=== PATIENT | female | born 1970 ===

== ENCOUNTER → 2016-06-12 | Outpatient (CLI) | payer OTHER | END | disposition home or self-care (01) | LOC: C.PAPS 10:54 | PROVIDERS: ATTEND Obstetrics & Gynecology | DX: Z01.419 Encounter for gynecological examination (general) (routine) without abnormal findings (principal) ==

== ENCOUNTER 2023-05-04 17:04 | Observation (INO) ==
--- NOTE | 2023-05-04 17:15 | ED Triage Note ---
Date of Service May 04, 2023 Provider in Triage Author: Lucia Subramanian History of Present Illness This patient was briefly evaluated while in triage. An abbreviated physical exam was performed. This patient is a 52-year-old Female who presents to the ED for evaluation of hypertension, seen at PCP today and had labs done, reports head, mouth and face is numb. LKW 1630 stroke alert called in triage. Physical Exam CONSTITUTIONAL: in no acute pain or distress, resting comfortably SKIN: pink, warm, dry CARDIAC: regular rate and rhythm RESPIRATORY: in no respiratory distress, lungs clear to auscultation ABDOMEN: no TTP MSK: 5/5 strength RUE, RLE, 4/4 strength LUE, LLE NEURO: headache, facial numbness, tingling, headache, Left side weakness, alert and oriented x 3 Initial orders for labs and / or imaging were placed and patient was placed in the waiting area until a bed is available. Please see further documentation for the full ED course.
[2023-05-04] MEDS ORDERED: SODIUM CHLORIDE 0.9% 500 ML IV ONE (17:27)
[2023-05-04] MEDS ORDERED: ACETAMINOPHEN 1,000 MG/100 ML VIAL IV STA (17:27)
[2023-05-04] MEDS ORDERED: OPTIRAY 320 125ml IV ONE (17:38)
[2023-05-04 17:40] LABS: iSTAT Creatinine 0.7 mg/dl (0.6-1.3); iSTAT Ionized Calcium 1.29 mmol/l (1.12-1.32)
--- NOTE | 2023-05-04 17:41 | CT Scan Report ---
CT OF THE HEAD WITHOUT CONTRAST CLINICAL HISTORY: neuro deficit, acute stroke suspected COMPARISON STUDY: No previous studies for comparison. CT DOSE: 1283.78 mGy.cm TECHNIQUE: Helical axial images of the head were obtained without IV contrast. Automated exposure con trol was utilized for the study. A dose lowering technique was utilized adhering to the principles o f ALARA. FINDINGS: No acute intracranial hemorrhage, midline shift or mass effect is present. The ventricular system is unremarkable. The basal cisterns are patent. No extra-axial collections are present. There are no findings to suggest acute dural sinus thrombosis or acute territorial infarct. No significant calvarial abnormalities are present. Visualized portions of the sinuses and mastoid air cells are shraddha ar. IMPRESSION: No acute intracranial findings. ACT 112: Negative or not required by law. Electronically signed by: Ramos Dill M.D. 05/04/2023 5:40 PM
[2023-05-04 17:42] LABS: Basophils # (auto) 0.12 K/uL (0.00-0.20); Basophils % (auto) 1.1 %; Eosinophils # (auto) 0.37 K/uL (0.00-0.50); Eosinophils % (auto) 3.4 %; Hematocrit (blood only) 45.3 % (37.0-47.0); Immature Granulocytes # (auto) 0.05 K/uL (0.01-0.20); Immature Granulocytes % (auto) 0.5 %; Lymphocytes # (auto) 3.52 K/uL (1.20-3.40); Lymphocytes % (auto) 32.7 %; Mean Corpuscular Hemoglobin 33.3 pg (25.0-34.0); Mean Corpuscular Hgb Conc 35.3 g/dL (32.0-36.0); Mean Corpuscular Volume 94.4 fL (80.0-100.0); Mean Platelet Volume 8.7 fL (9.4-12.4); Monocytes # (auto) 0.99 K/uL (0.11-0.59); Monocytes % (auto) 9.2 %; Neutrophils # (auto) 5.73 K/uL (1.40-6.50); Neutrophils % (auto) 53.1 %; Platelet Count 310 K/uL (130-400); RDW Coefficient of Variation 13.4 % (11.5-14.5); RDW Standard Deviation 46.5 fL (36.4-46.3); White Blood Count 10.78 K/ul (4.8-10.8)
--- NOTE | 2023-05-04 17:47 | CT Scan Report ---
CT ANGIOGRAPHY OF THE NECK WITH CONTRAST CLINICAL HISTORY: neuro deficit, acute stroke suspected COMPARISON STUDY: No previous studies for comparison. Technique: CT angiography of the carotid and vertebral arteries was obtained using Optiray and 3D rec onstruction on an independent workstation. NASCET criteria was utilized. Automated exposure control was utilized for the study. A dose lowering technique was utilized adhering to the principles of ALA RA. Findings: Visualized portions of the lung apices are unremarkable. There is no cervical lymphadenopat hy. No cervical spine fracture is noted. 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 There is mild atherosclerotic plaque of the aortic arch. The bilateral common carotid, cervical i nternal carotid and vertebral arteries are patent. No stenosis or dissection is present. There is no aneurysm within the neck. IMPRESSION: No stenosis or dissection within the bilateral common carotid, cervical internal carotid or vertebral arteries. ACT 112: Negative or not required by law. Electronically signed by: Ramos Dill M.D. 05/04/2023 5:44 PM
--- NOTE | 2023-05-04 17:50 | CT Scan Report ---
CTA ANGIOGRAPHY OF THE HEAD CLINICAL HISTORY: neuro deficit, acute stroke suspected COMPARISON STUDY: No previous studies for comparison. TECHNIQUE: Helical axial images of the head were obtained following uneventful intravenous administr ation of 119 cc of Optiray. Sagittal and coronal reconstructions were viewed as well as maximal inten sity projections on an independent 3-D workstation. Automated exposure control was utilized for the study. A dose lowering technique was utilized adhering to the principles of ALARA. FINDINGS: No acute intracranial hemorrhage was identified on the unenhanced head CT which will be rep orted separately. The ventricular system is normal. Basal cisterns are patent. There are no extra-axi al collections. The bilateral M1, M2, A1 and A2 segments are patent. The posterior circulation is int act. There is no large vessel occlusion. There is no intracranial aneurysm. Major dural sinuses are p atent. IMPRESSION: No large vessel occlusion. No intracranial aneurysm. ACT 112: Negative or not required by law. Electronically signed by: Ramos Dill M.D. 05/04/2023 5:47 PM
[2023-05-04 17:57] LABS: Albumin Globulin Ratio 1.5 (0.9-2); Albumin Level 4.6 gm/dl (3.4-5.0); BUN Creatinine Ratio 17.2 (10-20); Bilirubin,Total 0.7 mg/dl (0.2-1.0); Creatinine Clr Calc Pharmacy 118.9 ml/min; Est GFR (African American) 118.9 ml/min; Est GFR (Non-African American) 102.6 ml/min; Magnesium 1.8 mg/dl (1.7-2.4); Total Protein 7.6 gm/dl (6.0-8.3)
[2023-05-04 18:02] LABS: Troponin I High Sensitivity 3.7 pg/ml (0-14)
[2023-05-04 18:07] LABS: Partial Thromboplastin Time 28 Seconds (21-31); Prothrombin Time 10.9 Seconds (9.0-12.0)
[2023-05-04 18:24] LABS: Lyme Ab IgG w/WB Rflx Negative (Negative); Lyme Ab IgM w/WB Rflx Negative (Negative)
[2023-05-04 18:57] LABS: Appearance Urine Clear (Clear); Bilirubin Urine Negative (Negative); Blood Urine Negative (Negative); Color Urine Yellow; Glucose Urine UA Negative (Negative); Ketones Urine Negative (Negative); Leukocyte Esterase Urine Negative (Negative); Nitrite Urine Negative (Negative); Protein Urine Negative (Negative); Specific Gravity Urine 1.036 (1.000-1.030); Urobilinogen Urine Negative (Negative)
[2023-05-04 18:57] LABS: Adenovirus PCR Not Detected (NotDetected); Bordetella parapertussis PCR Not Detected (NotDetected); Bordetella pertussis PCR Not Detected (NotDetected); Chlamydia pneumoniae PCR Not Detected (NotDetected); Coronavirus 229E PCR Not Detected (NotDetected); Coronavirus CoV-2 (COVID19)PCR Not Detected (NotDetected); Coronavirus HKU1 PCR Not Detected (NotDetected); Coronavirus NL63 PCR Not Detected (NotDetected); Coronavirus OC43PCR Not Detected (NotDetected); Human Metapneumovirus PCR Not Detected (NotDetected); Influenza A PCR Not Detected (NotDetected); Influenza B PCR Not Detected (NotDetected); Mycoplasma pneumoniae PCR Not Detected (NotDetected); Parainfluenza Virus 1 PCR Not Detected (NotDetected); Parainfluenza Virus 2 PCR Not Detected (NotDetected); Parainfluenza Virus 3 PCR Not Detected (NotDetected); Parainfluenza Virus 4 PCR Not Detected (NotDetected); Respiratory Syncytial VirusPCR Not Detected (NotDetected); Rhinovirus/Enterovirus PCR Not Detected (NotDetected)
--- NOTE | 2023-05-04 19:20 | Emergency Department Note ---
Impression & Plan Hypertensive urgency, Chest pain, Facial paresthesia, Paresthesia of upper extremity, Paresthesia of lower extremity ED Provider Note NAME: CHRIS BLACKWELL AGE: 52 SEX: F ARRIVES VIA: Walk-In INFORMANT: Patient ED PROVIDER(S): Jameel Carlin MD CHIEF COMPLAINT: Hypertension, headache, chest pain, paresthesias. PLAN: Disposition: Admit MEDICAL DECISION MAKING: The patient is a pleasant 52-year-old woman with a past medical history of hypertension, hypothyroidism who presents to the emergency department via walk- in accompanied by her friend for evaluation of ongoing elevated blood pressure, frontal headache for the past several days where she was seen by her primary care doctor and had outpatient testing ordered but was instructed to present to emergency department if she had any worsening of symptoms which she did today and upon presenting to the triage desk complained of acute onset substernal chest pain and development of tingling in her face bilaterally, neck bilaterally, arms and feet bilaterally. A stroke alert was activated from triage for worsening symptoms in the setting of her blood pressure. On my evaluation in the critical care bay the patient's blood pressure is elevated 170s/110s and vital signs are otherwise stable. She appears clinically dry. She reports subjective paresthesias of the face, extremities and feet bilaterally but has no objective motor or sensory deficits. EKG without overt acute ischemia. CXR negative for acute cardiopulmonary process per my personal preliminary review/interpretation. WBC, H/H and platelets within normal limits. Chemistry without metabolic acidosis. LFTs are mildly elevated with AST and ALT 92 and 110, respectively and are nonspecific. Bilirubin is normal. High-sensitivity troponin 3.7, within normal limits. UA without convincing evidence of infection. Respiratory viral panel/[employer] was negative. Lyme screen was negative. CT of the head and CTA of the head and neck were performed were negative for ICH, ischemia or severe narrowing or occlusion of large vessels. The patient was treated with IV fluid hydration IV APAP and blood pressure did show some modest improvement to the 150s/90s and patient did feel improvement in her headache as well. However, given patient's hypertensive urgency with associated symptoms she does agree with plan for admission for further management and evaluation. Case was discussed with Dr. Armenta, [facility] hospitalist, who will evaluate the patient for admission. Triage Nursing notes reviewed and agree them. Prior/external medical records reviewed Vital Signs: reviewed Differential diagnosis: Infection, dehydration, metabolic abnormality, hypo/hyperglycemia, electrolyte disturbance, anemia, hypoxia, cardiac sources, intracerebral event, toxicologic, neurologic, as well as other pathologies. ER treatment provided: See below. Diagnostics interpreted by me: ECG: Normal sinus rhythm, 77 bpm, no ectopy, no overt ST elevation or depression, QTc 439, QRS 76. Cardiac Monitoring: An order for continuous cardiac monitoring was placed and demonstrated Normal sinus rhythm, 77 bpm, no ectopy. Laboratory studies: See below Imaging studies: See below Consultation(s): Case was discussed with Dr. Armenta, [facility] hospitalist, who will evaluate the patient for admission. HPI: The patient is a pleasant 52-year-old woman with a past medical history of hypertension, hypothyroidism who presents to the emergency department via walk- in accompanied by her friend for evaluation of ongoing elevated blood pressure, frontal headache for the past several days where she was seen by her primary care doctor and had outpatient testing ordered but was instructed to present to emergency department if she had any worsening of symptoms which she did today and upon presenting to the triage desk complained of acute onset substernal chest pain and development of tingling in her face bilaterally, neck bilaterally, arms and feet bilaterally. A stroke alert was activated from triage for worsening symptoms in the setting of her blood pressure. ROS: See above HPI for pertinent positives & negatives. A total of 10 systems reviewed and were otherwise negative. VITALS:See Below PHYSICAL EXAMINATION: GENERAL: Awake, alert, in no distress, BMI 38.2. HENT: Normocephalic, atraumatic. Oropharynx with dry mucous membranes and otherwise unremarkable. EYES: Normal conjunctiva. Sclera non-icteric. EOMI. No nystamgus. PEARRL. NECK: Supple. No nuchal rigidity. FROM. No JVD. RESPIRATORY: Clear to auscultation. CARDIAC: Regular rate, normal rhythm. Extremities warm and well perfused. Pulses equal. ABDOMEN: Soft, non-distended. No tenderness to palpation. No rebound or guarding. No masses. RECTAL: Deferred. MUSCULOSKELETAL: Chest examination reveals no tenderness. The back is symmetrical on inspection without obvious abnormality. There is no CVA tenderness to palpation. No joint edema. LOWER EXTREMITIES: Calves are equal size bilaterally and non-tender. No edema. No discoloration. NEURO: CNII-CXII grossly intact. No focal objective sensory or motor deficits noted. 5/5 strength and SILT x 4 extremities. Intact finger to nose. SKIN: No rash or jaundice noted. 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 Beliefs That Will Affect Care: None Current Living Situation: Spouse Current Living Situation Comment: lives with Other Information That Helps Us Care for You: No Feels Safe at Home: Yes Safety Concerns: Feels Safe At This Time Assistive Devices: Glasses Allergies Allergies Allergy/AdvReac Type Severity Reaction Status Date / Time shellfish derived Allergy Intermediate Hives Unverified 05/04/23 18:55 sulfamethoxazole Allergy Verified 02/13/23 15:05 [From Bactrim] trimethoprim [From Bactrim] Allergy Verified 02/13/23 15:05 Home Meds Home Medications Medication Instructions Recorded Confirmed metoprolol tartrate 25 mg PO BID 09/27/22 05/04/23 alprazolam 0.5 mg tablet 0.5 mg PO DAILY PRN Anxiety 05/04/23 05/04/23 levothyroxine 50 mcg tablet 50 mcg PO QAM 05/04/23 05/04/23 lisinopril 0 mg PO DAILY 05/04/23 05/04/23 Results & Data (ED) Vital Signs Vital Signs - 24 hr 05/04/23 17:13 05/04/23 17:29 05/04/23 17:39 Temperature 36.6 C Temperature Source Temporal Artery Scan Pulse Rate 76 70 73 Pulse Rate [Apical] Pulse Rate from SpO2 Sensor 73 Respiratory Rate 20 19 Respiratory Effort / Characteristics Non-Labored Respiratory Depth Normal Blood Pressure 170/110 H 164/93 H Blood Pressure [Right Arm] Blood Pressure Mean 130 116 Blood Pressure Mean [Right Arm] Pulse Oximetry 97 99 Oxygen Delivery Method Room Air Sepsis Recent Fever Within 48 Hours No Sepsis New/Unexplained Change in Mental Status No Sepsis Action Taken by Nursing No Action Required 05/04/23 18:00 05/04/23 18:32 05/04/23 20:00 Temperature Temperature Source Pulse Rate 74 Pulse Rate [Apical] 64 63 Pulse Rate from SpO2 Sensor 74 Respiratory Rate 22 18 18 Respiratory Effort / Characteristics Respiratory Depth Blood Pressure 154/83 H Blood Pressure [Right Arm] 157/92 H 166/113 H Blood Pressure Mean 106 Blood Pressure Mean [Right Arm] 113 130 Pulse Oximetry 99 99 98 Oxygen Delivery Method Room Air Room Air Sepsis Recent Fever Within 48 Hours Sepsis New/Unexplained Change in Mental Status Sepsis Action Taken by Nursing Laboratory Data Attestation: I reviewed the patient's lab results. 05/04/23 17:20 05/04/23 17:20 Lab Results 05/04/23 05/04/23 05/04/23 Range/Units 17:20 17:24 17:27 WBC 10.78 (4.8-10.8) K/ul RBC 4.80 (4.20-5.40) M/uL Hgb 16.0 (12.0-16.0) g/dl POC Hgb 16.0 (12.0-16.0) g/dl Hct 45.3 (37.0-47.0) % POC Hct 47 (37-47) % MCV 94.4 (80.0-100.0) fL MCH 33.3 (25.0-34.0) pg MCHC 35.3 (32.0-36.0) g/dL RDW Std Deviation 46.5 H (36.4-46.3) fL RDW Coeff of Juice 13.4 (11.5-14.5) % Plt Count 310 (130-400) K/uL MPV 8.7 L (9.4-12.4) fL Immature Gran % (Auto) 0.5 % Neut % (Auto) 53.1 % Lymph % (Auto) 32.7 % [place] % (Auto) 9.2 % Eos % (Auto) 3.4 % Baso % (Auto) 1.1 % Neut # (Auto) 5.73 (1.40-6.50) K/uL Lymph # (Auto) 3.52 H (1.20-3.40) K/uL [place] # (Auto) 0.99 H (0.11-0.59) K/uL Eos # (Auto) 0.37 (0.00-0.50) K/uL Baso # (Auto) 0.12 (0.00-0.20) K/uL Immature Gran # (Auto) 0.05 (0.01-0.20) K/uL PT 10.9 (9.0-12.0) Seconds INR 1.0 (0.9-1.1) APTT 28 (21-31) Seconds PTT Ratio 1.0 POC Sodium 140 (135-144) mmol/L Sodium 139 (136-145) mmol/L POC Potassium 4.0 (3.3-5.0) mmol/L Potassium 4.0 (3.5-5.1) mmol/L POC Chloride 101 (101-112) mmol/L Chloride 102 (98-107) mmol/L Carbon Dioxide 30 (21-32) mmol/L POC Total CO2 32 H (24-31) mmol/L Anion Gap 7 (3-11) POC Anion Gap 12.0 L (16-25) mmol/L POC BUN 11 (7-18) mg/dl BUN 11 (6-23) mg/dl Creatinine 0.64 (0.6-1.2) mg/dl POC Creatinine 0.7 (0.6-1.3) mg/dl Est Cr Clr Drug Dosing 118.9 ml/min Est GFR ( Amer) 118.9 ml/min Est GFR (Non-Af Amer) 102.6 ml/min BUN/Creatinine Ratio 17.2 (10-20) Glucose 101 H (70-99(Fasting)) mg/dl POC Glucose (other) 103 H (70-99) mg/dl Calcium 10.0 (8.6-10.3) mg/dl POC Ioniz Calcium Dre 1.29 (1.12-1.32) mmol/l Magnesium 1.8 (1.7-2.4) mg/dl Total Bilirubin 0.7 (0.2-1.0) mg/dl AST 92 H (13-39) U/L ALT 110 H (7-52) U/L Alkaline Phosphatase 79 (34-104) U/L Troponin I High Sens 3.7 (0-14) pg/ml Total Protein 7.6 (6.0-8.3) gm/dl Albumin 4.6 (3.4-5.0) gm/dl Globulin 3.0 (2.5-4.0) gm/dl Albumin/Globulin Ratio 1.5 (0.9-2) Urine Color Urine Appearance (Clear) Urine pH (4.5-7.5) Ur Specific [place] (1.000-1.030) Urine Protein (Negative) Urine Glucose (UA) (Negative) Urine Ketones (Negative) Urine Blood (Negative) Urine Nitrite (Negative) Urine Bilirubin (Negative) Urine Urobilinogen (Negative) Ur Leukocyte Esterase (Negative) Adenovirus (PCR) (NotDetected) B. pertussis DNA (PCR) (NotDetected) B.parapertussis DNA PCR (NotDetected) Lyme Disease IgG Ab Negative (Negative) Lyme Disease IgM Ab Negative (Negative) C. pneumoniae DNA (PCR) (NotDetected) Coronavirus OC43 (PCR) (NotDetected) Coronavirus HKU1 (PCR) (NotDetected) Coronavirus 229E (PCR) (NotDetected) SARS-CoV-2 (PCR) (NotDetected) Coronavirus NL63 (PCR) (NotDetected) Human Metapneumovir PCR (NotDetected) Influenza Type A (PCR) (NotDetected) Influenza Type B (PCR) (NotDetected) M. pneumoniae (PCR) (NotDetected) Parainfluenza 1 (PCR) (NotDetected) Parainfluenza 2 (PCR) (NotDetected) Parainfluenza 3 (PCR) (NotDetected) Parainfluenza 4 (PCR) (NotDetected) RSV (PCR) (NotDetected) Entero/Rhino (PCR) (NotDetected) Blood Type B Positive Antibody Screen NEGATIVE 05/04/23 05/04/23 05/04/23 Range/Units 17:48 18:48 20:28 WBC (4.8-10.8) K/ul RBC (4.20-5.40) M/uL Hgb (12.0-16.0) g/dl POC Hgb (12.0-16.0) g/dl Hct (37.0-47.0) % POC Hct (37-47) % MCV (80.0-100.0) fL MCH (25.0-34.0) pg MCHC (32.0-36.0) g/dL RDW Std Deviation (36.4-46.3) fL RDW Coeff of Juice (11.5-14.5) % Plt Count (130-400) K/uL MPV (9.4-12.4) fL Immature Gran % (Auto) % Neut % (Auto) % Lymph % (Auto) % [place] % (Auto) % Eos % (Auto) % Baso % (Auto) % Neut # (Auto) (1.40-6.50) K/uL Lymph # (Auto) (1.20-3.40) K/uL [place] # (Auto) (0.11-0.59) K/uL Eos # (Auto) (0.00-0.50) K/uL Baso # (Auto) (0.00-0.20) K/uL Immature Gran # (Auto) (0.01-0.20) K/uL PT (9.0-12.0) Seconds INR (0.9-1.1) APTT (21-31) Seconds PTT Ratio POC Sodium (135-144) mmol/L Sodium (136-145) mmol/L POC Potassium (3.3-5.0) mmol/L Potassium (3.5-5.1) mmol/L POC Chloride (101-112) mmol/L Chloride (98-107) mmol/L Carbon Dioxide (21-32) mmol/L POC Total CO2 (24-31) mmol/L Anion Gap (3-11) POC Anion Gap (16-25) mmol/L POC BUN (7-18) mg/dl BUN (6-23) mg/dl Creatinine (0.6-1.2) mg/dl POC Creatinine (0.6-1.3) mg/dl Est Cr Clr Drug Dosing ml/min Est GFR ( Amer) ml/min Est GFR (Non-Af Amer) ml/min BUN/Creatinine Ratio (10-20) Glucose (70-99(Fasting)) mg/dl POC Glucose (other) (70-99) mg/dl Calcium (8.6-10.3) mg/dl POC Ioniz Calcium Dre (1.12-1.32) mmol/l Magnesium (1.7-2.4) mg/dl Total Bilirubin (0.2-1.0) mg/dl AST (13-39) U/L ALT (7-52) U/L Alkaline Phosphatase (34-104) U/L Troponin I High Sens 4.1 (0-14) pg/ml Total Protein (6.0-8.3) gm/dl Albumin (3.4-5.0) gm/dl Globulin (2.5-4.0) gm/dl Albumin/Globulin Ratio (0.9-2) Urine Color Yellow Urine Appearance Clear (Clear) Urine pH 7.0 (4.5-7.5) Ur Specific [place] 1.036 H (1.000-1.030) Urine Protein Negative (Negative) Urine Glucose (UA) Negative (Negative) Urine Ketones Negative (Negative) Urine Blood Negative (Negative) Urine Nitrite Negative (Negative) Urine Bilirubin Negative (Negative) Urine Urobilinogen Negative (Negative) Ur Leukocyte Esterase Negative (Negative) Adenovirus (PCR) Not Detected (NotDetected) B. pertussis DNA (PCR) Not Detected (NotDetected) B.parapertussis DNA PCR Not Detected (NotDetected) Lyme Disease IgG Ab (Negative) Lyme Disease IgM Ab (Negative) C. pneumoniae DNA (PCR) Not Detected (NotDetected) Coronavirus OC43 (PCR) Not Detected (NotDetected) Coronavirus HKU1 (PCR) Not Detected (NotDetected) Coronavirus 229E (PCR) Not Detected (NotDetected) SARS-CoV-2 (PCR) Not Detected (NotDetected) Coronavirus NL63 (PCR) Not Detected (NotDetected) Human Metapneumovir PCR Not Detected (NotDetected) Influenza Type A (PCR) Not Detected (NotDetected) Influenza Type B (PCR) Not Detected (NotDetected) M. pneumoniae (PCR) Not Detected (NotDetected) Parainfluenza 1 (PCR) Not Detected (NotDetected) Parainfluenza 2 (PCR) Not Detected (NotDetected) Parainfluenza 3 (PCR) Not Detected (NotDetected) Parainfluenza 4 (PCR) Not Detected (NotDetected) RSV (PCR) Not Detected (NotDetected) Entero/Rhino (PCR) Not Detected (NotDetected) Blood Type Antibody Screen Administered Medications Sodium Chloride (Nss) 1,000 mls @ 80 mls/hr IV .[id number] MADALYN Stop: 05/05/23 11:10 Last Admin: 05/04/23 23:01 Dose: 80 mls/hr Documented By: BINH Metoprolol Tartrate (Metoprolol Tartrate 25 Mg Tab) 25 mg PO BID MADALYN Stop: 06/03/23 22:40 Last Admin: 05/04/23 23:16 Dose: 25 mg Documented By: BINH Nitroglycerin (Nitroglycerin 2% Ointment 30gm Tube) 0.5 inch EXT Q6H MADALYN Stop: 06/03/23 20:44 Last Admin: 05/04/23 20:46 Dose: 0.5 inch Documented By: DANILO Discontinued Medications Aspirin (Aspirin 81 Mg Chew) 324 mg PO NOW STA Stop: 05/04/23 21:11 Last Admin: 05/04/23 21:31 Dose: 324 mg Documented By: DANILO Sodium Chloride (Nss) 500 mls @ 999 mls/hr IV .Q31M ONE Stop: 05/04/23 17:57 Last Infusion: 05/04/23 18:44 Dose: Infused Documented By: Admin: 05/04/23 18:01 Dose: 999 mls/hr Documented By: MARBIN Acetaminophen (Ofirmev) 1,000 mg in 100 mls @ 400 mls/hr IV NOW STA Stop: 05/04/23 17:41 Last Infusion: 05/04/23 18:44 Dose: Infused Documented By: Admin: 05/04/23 18:01 Dose: 400 mls/hr Documented By: MARBIN Thiamine HCl 100 mg/ Syringe 10 mls @ 2 mls/min IV NOW STA Stop: 05/04/23 22:51 Last Admin: 05/04/23 23:17 Dose: 2 mls/min Documented By: BINH Ioversol (Optiray 320 125ml) 119 ml IV ONCE ONE Stop: 05/04/23 17:39 Last Admin: 05/04/23 17:38 Dose: 119 ml Documented By: BINU Lisinopril (Lisinopril 10 Mg Tab) 10 mg PO NOW STA Stop: 05/04/23 20:34 Last Admin: 05/04/23 20:56 Dose: 10 mg Documented By: ACC Lorazepam (Lorazepam 0.5 Mg Tab) 0.5 mg PO NOW STA Stop: 05/04/23 20:51 Last Admin: 05/04/23 20:57 Dose: 0.5 mg Documented By: ACC Imaging Data Radiologist's Impression: Head CT 05/04/23 17:17 CT OF THE HEAD WITHOUT CONTRAST CLINICAL HISTORY: neuro deficit, acute stroke suspected COMPARISON STUDY: No previous studies for comparison. CT DOSE: 1283.78 mGy.cm TECHNIQUE: Helical axial images of the head were obtained without IV contrast. Automated exposure control was utilized for the study. A dose lowering technique was utilized adhering to the principles of ALARA. FINDINGS: No acute intracranial hemorrhage, midline shift or mass effect is present. The ventricular system is unremarkable. The basal cisterns are patent. No extra-axial collections are present. There are no findings to suggest acute dural sinus thrombosis or acute territorial infarct. No significant calvarial abnormalities are present. Visualized portions of the sinuses and mastoid air cells are clear. IMPRESSION: No acute intracranial findings. ACT 112: Negative or not required by law. Electronically signed by: Ramos Dill M.D. 05/04/2023 5:40 PM Head CTA 05/04/23 17:17 CTA ANGIOGRAPHY OF THE HEAD CLINICAL HISTORY: neuro deficit, acute stroke suspected COMPARISON STUDY: No previous studies for comparison. TECHNIQUE: Helical axial images of the head were obtained following uneventful intravenous administration of 119 cc of Optiray. Sagittal and coronal reconstructions were viewed as well as maximal intensity projections on an independent 3-D workstation. Automated exposure control was utilized for the study. A dose lowering technique was utilized adhering to the principles of ALARA. FINDINGS: No acute intracranial hemorrhage was identified on the unenhanced head CT which will be reported separately. The ventricular system is normal. Basal cisterns are patent. There are no extra-axial collections. The bilateral M1, M2, A1 and A2 segments are patent. The posterior circulation is intact. There is no large vessel occlusion. There is no intracranial aneurysm. Major dural sinuses are patent. IMPRESSION: No large vessel occlusion. No intracranial aneurysm. ACT 112: Negative or not required by law. Electronically signed by: Ramos Dill M.D. 05/04/2023 5:47 PM Neck CTA 05/04/23 17:17 CT ANGIOGRAPHY OF THE NECK WITH CONTRAST CLINICAL HISTORY: neuro deficit, acute stroke suspected COMPARISON STUDY: No previous studies for comparison. Technique: CT angiography of the carotid and vertebral arteries was obtained using Optiray and 3D reconstruction on an independent workstation. NASCET criteria was utilized. Automated exposure control was utilized for the study. A dose lowering technique was utilized adhering to the principles of ALARA. Findings: Visualized portions of the lung apices are unremarkable. There is no cervical lymphadenopathy. No cervical spine fracture is noted. Incidental note is made of an aberrant right subclavian artery. There is mild atherosclerotic plaque of the aortic arch. The bilateral common carotid, cervical internal carotid and vertebral arteries are patent. No stenosis or dissection is present. There is no aneurysm within the neck. IMPRESSION: No stenosis or dissection within the bilateral common carotid, cervical internal carotid or vertebral arteries. ACT 112: Negative or not required by law. Electronically signed by: Ramos Dill M.D. 05/04/2023 5:44 PM Discharge Plan Visit Data Chief Complaint: Neuro Symptoms/Deficit Stated Complaint: HIGH BP, CHEST PAIN, FACE/NECK NUMB, DIZZY ED Provider: Jameel Carlin Discharge Problem: Hypertensive urgency, Chest pain, Facial paresthesia, Paresthesia of upper extremity, Paresthesia of lower extremity Patient Disposition: Admitted As Inpatient Discharge Instructions Interventions: ED Discharge Assessment Last Done: 05/04/23 22:18 Discharge Problem: Chest pain Qualifiers: Chest pain type: unspecified Qualified Code(s): R07.9 - Chest pain, unspecified
[2023-05-04] MEDS ORDERED: lisinopril 10 MG TAB PO STA (20:33)
[2023-05-04] MEDS: NITROGLYCERIN 2% OINTMENT 30GM TUBE EXT SCH (20:46)
[2023-05-04] MEDS ORDERED: LORazepam 0.5 MG TAB PO STA (20:50)
--- NOTE | 2023-05-04 21:05 | History & Physical Report ---
Date of Service May 04, 2023 Assessment & Plan (1) Hypertensive urgency: Plan: 52-year-old female with past med history significant for hypertension, borderline diabetes, borderline hyperlipidemia, obesity comes because of elevated blood pressure and numbness in the face and tingliness in extremities. Patient states lately she is having headaches. Since Sunday she is having dizziness. Today went to PCP and was started on lisinopril but she did not took it. But she developed some numbness in the face and tingling in the extremities which prompted her to come to the ER Hypertensive urgency Possible TIA Feeling numbness in the face and tingliness in bilateral extremities possibly from hypertensive urgency Initial stroke work up unremarkable we will complete with MRI scan and if shows any lesions will consult neurology Hypertensive urgency Patient on Lopressor which will be continued Patient was started on lisinopril today which she did not take Will give lisinopril [address] on Nitropaste Close monitor Will follow serial cardiac enzymes and echocardiogram Monitor on telemetry Consult cardiology in a.m. as BP dropped nitropaste was d/wilda. Chest pressure Currently resolved Initial workup unremarkable Will follow serial cardiac enzymes and echo Hypothyroidism On Synthyroid Follow TSH Alcoholism States drinks 2-3 shots of vodka on weekends and sometimes weekdays States she did not drink for last 1 week because of headaches Will place on thiamine and folic acid multivitamin IV Ativan as needed Close monitors Obesity Needs counseling Sleep study as outpatient May need nocturnal pulse ox study while in the hospital DVT prophylaxis SCDs for now Disposition Telemetry floor Full code History of Present Illness Chief Complaint: Hypertensive urgency, numbness in the face and tingling in Extremities Primary Care Provider: Earnest Samayoa 52-year-old female with past med history significant for hypertension, borderline diabetes, borderline hyperlipidemia, obesity comes because of elevated blood pressure and numbness in the face and tingliness in extremities. Patient states lately she is having headaches. Since Sunday she is having dizziness. Today went to PCP and was started on lisinopril but she did not took it. But she developed some numbness in the face and tingling in the extremities which prompted her to come to the ER. Stroke workup was done with CT head and CTA head and neck which are unremarkable. After Tylenol her headache improved and blood pressures seem to improved and her symptoms resolved. Her blood pressure has been climbing up again and she states the numbness is coming back on the face. Alert and oriented. Speech is clear. Denies any blurred visions or double visions. No earache. No runny nose. No sore throat. No cough. She was also having some chest pain earlier that resolved now. Denies any shortness of breath. No nausea. No abdominal pain. Normal bowel and bladder movements. Past medical history. As mentioned above Past surgical history. Cholecystectomy Family history. Mother side had heart disease. Social history. No smoking. Drinks 2-3 shots of vodka every weekend and sometimes on the weekdays. But states that she did not drink for last 1 week because of headaches. Denies any drug use. Allergies Allergy/AdvReac Type Severity Reaction Status Date / Time shellfish derived Allergy Intermediate Hives Unverified 05/04/23 18:55 sulfamethoxazole Allergy Verified 02/13/23 15:05 [From Bactrim] trimethoprim [From Bactrim] Allergy Verified 02/13/23 15:05 Home Medications Medication Instructions Recorded Confirmed Type metoprolol tartrate 25 mg PO BID 09/27/22 05/04/23 History alprazolam 0.5 mg tablet 0.5 mg PO DAILY PRN Anxiety 05/04/23 05/04/23 History levothyroxine 50 mcg tablet 50 mcg PO QAM 05/04/23 05/04/23 History lisinopril 0 mg PO DAILY 05/04/23 05/04/23 History Past Med/Surg History Medical History Anxiety Hypothyroidism Hypertension Surgical History History of cholecystectomy Family History Mother Myocardial infarction Denies family history of Ovarian cancer Prostate cancer Breast cancer Colorectal cancer Social History Smoking Status: Never smoker Second Hand Exposure: No; Do You Dip or Chew Tobacco: No; Hx Alcohol Use: Yes Alcohol type: hard liquor Hx Substance Use: No Preferred Language: Romanian Communication Ability: Effective Elevator Adjuster Required: No Beliefs That Will Affect Care: None Current Living Situation: Spouse Current Living Situation Comment: lives with Other Information That Helps Us Care for You: No Feels Safe at Home: Yes Safety Concerns: Feels Safe At This Time Assistive Devices: Glasses Review of Systems Review of Systems: All systems reviewed & are unremarkable except as noted in HPI & below Physical Exam Physical Exam: General- Not in distress Head- atraumatic Eyes- PERRL. ENT- oropharynx clear Neck- supple, no JVD. Lungs- clear to auscultation , no wheezing or crackles Heart- regular rhythm; no murmur, no gallop. Abdomen- normal bowel sounds, soft, nontender, no distension. Extremities- no pretibial edema, no erythema seen. Neuro- alert, oriented x 3; PERRL no facial palsy; no dysarthria; motor 5/5 bilaterally; normal coordination of movements. No pronator drift. sensations intact. Skin- warm & dry Results & Data Results & Data Vital Signs (Past 12 Hours) Vital Signs Temp Pulse Pulse Resp BP BP Pulse Ox 05/04/23 20:00 63 18 166/113 H 98 05/04/23 18:32 64 18 157/92 H 99 05/04/23 18:00 74 22 154/83 H 99 05/04/23 17:39 73 19 164/93 H 99 05/04/23 17:29 70 05/04/23 17:13 36.6 C 76 20 170/110 H 97 O2 Del Method 05/04/23 20:00 Room Air 05/04/23 18:32 Room Air 05/04/23 18:00 05/04/23 17:39 05/04/23 17:29 05/04/23 17:13 Room Air Diagnostic Findings Laboratory Results WBC 10.78 K/ul (4.8-10.8) 05/04/23 17:20 RBC 4.80 M/uL (4.20-5.40) 05/04/23 17:20 Hgb 16.0 g/dl (12.0-16.0) 05/04/23 17:20 POC Hgb 16.0 g/dl (12.0-16.0) 05/04/23 17:27 Hct 45.3 % (37.0-47.0) 05/04/23 17:20 POC Hct 47 % (37-47) 05/04/23 17:27 MCV 94.4 fL (80.0-100.0) 05/04/23 17:20 MCH 33.3 pg (25.0-34.0) 05/04/23 17:20 MCHC 35.3 g/dL (32.0-36.0) 05/04/23 17:20 RDW Std Deviation 46.5 fL (36.4-46.3) H 05/04/23 17:20 RDW Coeff of Juice 13.4 % (11.5-14.5) 05/04/23 17:20 Plt Count 310 K/uL (130-400) 05/04/23 17:20 MPV 8.7 fL (9.4-12.4) L 05/04/23 17:20 Immature Gran % (Auto) 0.5 % 05/04/23 17:20 Neut % (Auto) 53.1 % 05/04/23 17:20 Lymph % (Auto) 32.7 % 05/04/23 17:20 [place] % (Auto) 9.2 % 05/04/23 17:20 Eos % (Auto) 3.4 % 05/04/23 17:20 Baso % (Auto) 1.1 % 05/04/23 17:20 Neut # (Auto) 5.73 K/uL (1.40-6.50) 05/04/23 17:20 Lymph # (Auto) 3.52 K/uL (1.20-3.40) H 05/04/23 17:20 [place] # (Auto) 0.99 K/uL (0.11-0.59) H 05/04/23 17:20 Eos # (Auto) 0.37 K/uL (0.00-0.50) 05/04/23 17:20 Baso # (Auto) 0.12 K/uL (0.00-0.20) 05/04/23 17:20 Immature Gran # (Auto) 0.05 K/uL (0.01-0.20) 05/04/23 17:20 PT 10.9 Seconds (9.0-12.0) 05/04/23 17:20 INR 1.0 (0.9-1.1) 05/04/23 17:20 APTT 28 Seconds (21-31) 05/04/23 17:20 PTT Ratio 1.0 05/04/23 17:20 POC Sodium 140 mmol/L (135-144) 05/04/23 17:27 Sodium 139 mmol/L (136-145) 05/04/23 17:20 POC Potassium 4.0 mmol/L (3.3-5.0) 05/04/23 17:27 Potassium 4.0 mmol/L (3.5-5.1) 05/04/23 17:20 POC Chloride 101 mmol/L (101-112) 05/04/23 17:27 Chloride 102 mmol/L (98-107) 05/04/23 17:20 Carbon Dioxide 30 mmol/L (21-32) 05/04/23 17:20 POC Total CO2 32 mmol/L (24-31) H 05/04/23 17:27 Anion Gap 7 (3-11) 05/04/23 17:20 POC Anion Gap 12.0 mmol/L (16-25) L 05/04/23 17:27 POC BUN 11 mg/dl (7-18) 05/04/23 17:27 BUN 11 mg/dl (6-23) 05/04/23 17:20 Creatinine 0.64 mg/dl (0.6-1.2) 05/04/23 17:20 POC Creatinine 0.7 mg/dl (0.6-1.3) 05/04/23 17:27 Est Cr Clr Drug Dosing 118.9 ml/min 05/04/23 17:20 Est GFR ( Amer) 118.9 ml/min 05/04/23 17:20 Est GFR (Non-Af Amer) 102.6 ml/min 05/04/23 17:20 BUN/Creatinine Ratio 17.2 (10-20) 05/04/23 17:20 Glucose 101 mg/dl (70-99(Fasting)) H 05/04/23 17:20 POC Glucose (other) 103 mg/dl (70-99) H 05/04/23 17:27 Calcium 10.0 mg/dl (8.6-10.3) 05/04/23 17:20 POC Ioniz Calcium Dre 1.29 mmol/l (1.12-1.32) 05/04/23 17:27 Magnesium 1.8 mg/dl (1.7-2.4) 05/04/23 17:20 Total Bilirubin 0.7 mg/dl (0.2-1.0) 05/04/23 17:20 AST 92 U/L (13-39) H 05/04/23 17:20 ALT 110 U/L (7-52) H 05/04/23 17:20 Alkaline Phosphatase 79 U/L (34-104) 05/04/23 17:20 Troponin I High Sens 3.7 pg/ml (0-14) 05/04/23 17:20 Total Protein 7.6 gm/dl (6.0-8.3) 05/04/23 17:20 Albumin 4.6 gm/dl (3.4-5.0) 05/04/23 17:20 Globulin 3.0 gm/dl (2.5-4.0) 05/04/23 17:20 Albumin/Globulin Ratio 1.5 (0.9-2) 05/04/23 17:20 Urine Color Yellow 05/04/23 18:48 Urine Appearance Clear (Clear) 05/04/23 18:48 Urine pH 7.0 (4.5-7.5) 05/04/23 18:48 Ur Specific [place] 1.036 (1.000-1.030) H 05/04/23 18:48 Urine Protein Negative (Negative) 05/04/23 18:48 Urine Glucose (UA) Negative (Negative) 05/04/23 18:48 Urine Ketones Negative (Negative) 05/04/23 18:48 Urine Blood Negative (Negative) 05/04/23 18:48 Urine Nitrite Negative (Negative) 05/04/23 18:48 Urine Bilirubin Negative (Negative) 05/04/23 18:48 Urine Urobilinogen Negative (Negative) 05/04/23 18:48 Ur Leukocyte Esterase Negative (Negative) 05/04/23 18:48 Adenovirus (PCR) Not Detected (NotDetected) 05/04/23 17:48 B. pertussis DNA (PCR) Not Detected (NotDetected) 05/04/23 17:48 B.parapertussis DNA PCR Not Detected (NotDetected) 05/04/23 17:48 Lyme Disease IgG Ab Negative (Negative) 05/04/23 17:20 Lyme Disease IgM Ab Negative (Negative) 05/04/23 17:20 C. pneumoniae DNA (PCR) Not Detected (NotDetected) 05/04/23 17:48 Coronavirus OC43 (PCR) Not Detected (NotDetected) 05/04/23 17:48 Coronavirus HKU1 (PCR) Not Detected (NotDetected) 05/04/23 17:48 Coronavirus 229E (PCR) Not Detected (NotDetected) 05/04/23 17:48 SARS-CoV-2 (PCR) Not Detected (NotDetected) 05/04/23 17:48 Coronavirus NL63 (PCR) Not Detected (NotDetected) 05/04/23 17:48 Human Metapneumovir PCR Not Detected (NotDetected) 05/04/23 17:48 Influenza Type A (PCR) Not Detected (NotDetected) 05/04/23 17:48 Influenza Type B (PCR) Not Detected (NotDetected) 05/04/23 17:48 M. pneumoniae (PCR) Not Detected (NotDetected) 05/04/23 17:48 Parainfluenza 1 (PCR) Not Detected (NotDetected) 05/04/23 17:48 Parainfluenza 2 (PCR) Not Detected (NotDetected) 05/04/23 17:48 Parainfluenza 3 (PCR) Not Detected (NotDetected) 05/04/23 17:48 Parainfluenza 4 (PCR) Not Detected (NotDetected) 05/04/23 17:48 RSV (PCR) Not Detected (NotDetected) 05/04/23 17:48 Entero/Rhino (PCR) Not Detected (NotDetected) 05/04/23 17:48 Blood Type B Positive 05/04/23 17:24 Antibody Screen NEGATIVE 05/04/23 17:[address] 05/04/23 17:17 CT OF THE HEAD WITHOUT CONTRAST CLINICAL HISTORY: neuro deficit, acute stroke suspected COMPARISON STUDY: No previous studies for comparison. CT DOSE: 1283.78 mGy.cm TECHNIQUE: Helical axial images of the head were obtained without IV contrast. Automated exposure control was utilized for the study. A dose lowering technique was utilized adhering to the principles of ALARA. FINDINGS: No acute intracranial hemorrhage, midline shift or mass effect is present. The ventricular system is unremarkable. The basal cisterns are patent. No extra-axial collections are present. There are no findings to suggest acute dural sinus thrombosis or acute territorial infarct. No significant calvarial abnormalities are present. Visualized portions of the sinuses and mastoid air cells are clear. IMPRESSION: No acute intracranial findings. ACT 112: Negative or not required by law. Electronically signed by: Ramos Dill M.D. 05/04/2023 5:40 PM Head CTA 05/04/23 17:17 CTA ANGIOGRAPHY OF THE HEAD CLINICAL HISTORY: neuro deficit, acute stroke suspected COMPARISON STUDY: No previous studies for comparison. TECHNIQUE: Helical axial images of the head were obtained following uneventful intravenous administration of 119 cc of Optiray. Sagittal and coronal reconstructions were viewed as well as maximal intensity projections on an independent 3-D workstation. Automated exposure control was utilized for the study. A dose lowering technique was utilized adhering to the principles of ALARA. FINDINGS: No acute intracranial hemorrhage was identified on the unenhanced head CT which will be reported separately. The ventricular system is normal. Basal cisterns are patent. There are no extra-axial collections. The bilateral M1, M2, A1 and A2 segments are patent. The posterior circulation is intact. There is no large vessel occlusion. There is no intracranial aneurysm. Major dural sinuses are patent. IMPRESSION: No large vessel occlusion. No intracranial aneurysm. ACT 112: Negative or not required by law. Electronically signed by: Ramos Dill M.D. 05/04/2023 5:47 PM Neck CTA 05/04/23 17:17 CT ANGIOGRAPHY OF THE NECK WITH CONTRAST CLINICAL HISTORY: neuro deficit, acute stroke suspected COMPARISON STUDY: No previous studies for comparison. Technique: CT angiography of the carotid and vertebral arteries was obtained using Optiray and 3D reconstruction on an independent workstation. NASCET criteria was utilized. Automated exposure control was utilized for the study. A dose lowering technique was utilized adhering to the principles of ALARA. Findings: Visualized portions of the lung apices are unremarkable. There is no cervical lymphadenopathy. No cervical spine fracture is noted. Incidental note is made of an aberrant right subclavian artery. There is mild atherosclerotic plaque of the aortic arch. The bilateral common carotid, cervical internal carotid and vertebral arteries are patent. No stenosis or dissection is present. There is no aneurysm within the neck. IMPRESSION: No stenosis or dissection within the bilateral common carotid, cervical internal carotid or vertebral arteries. ACT 112: Negative or not required by law. Electronically signed by: Ramos Dill M.D. 05/04/2023 5:44 PM ECG Additional Comments: ECG. Normal sinus rhythm with rate of 77. No acute ST changes seen. Code Status & VTE Plan VTE Prophylaxis Plan VTE Prophylaxis will be ordered: Yes
[2023-05-04] MEDS ORDERED: ASPIRIN 81 MG CHEW PO STA (21:10)
[2023-05-04] MEDS ORDERED: LORazepam 0.5 MG in SYRINGE 0.25 ML IV PRN (22:41)
[2023-05-04] MEDS ORDERED: ALPRAZolam 0.5 MG TABLET PO PRN (22:41)
[2023-05-04] MEDS ORDERED: NITROGLYCERIN SL 0.4 MG/TAB TAB SL PRN (22:41)
[2023-05-04] MEDS ORDERED: SODIUM CHLORIDE 0.9% 1,000 ML IV SCH (22:41)
[2023-05-04] MEDS ORDERED: POLYETHYLENE (MIRALAX) 17 GM PACK PO PRN (22:41)
[2023-05-04] MEDS ORDERED: PHARMACIST DISCHARGE MED REC CONSULT PRN (22:41)
[2023-05-04] MEDS ORDERED: THIAMINE HCL 100 MG in SYRINGE 9 ML IV STA (22:47)
[2023-05-04] MEDS: METOPROLOL TARTRATE 25 MG TAB PO SCH (23:16)
[2023-05-05] MEDS: NITROGLYCERIN 2% OINTMENT 30GM TUBE EXT SCH (03:03)
[2023-05-05] MEDS: ACETAMINOPHEN 325 MG TAB PO PRN ×2 (05:32→11:12)
[2023-05-05 06:09] LABS: Basophils # (auto) 0.09 K/uL (0.00-0.20); Basophils % (auto) 1.1 %; Eosinophils # (auto) 0.44 K/uL (0.00-0.50); Eosinophils % (auto) 5.2 %; Hemoglobin 13.3 g/dl (12.0-16.0); Immature Granulocytes # (auto) 0.02 K/uL (0.01-0.20); Immature Granulocytes % (auto) 0.2 %; Lymphocytes % (auto) 40.2 %; Mean Corpuscular Hemoglobin 33.3 pg (25.0-34.0); Mean Platelet Volume 8.9 fL (9.4-12.4); Monocytes % (auto) 9.5 %; Neutrophils # (auto) 3.71 K/uL (1.40-6.50); Neutrophils % (auto) 43.8 %; Platelet Count 273 K/uL (130-400); RDW Coefficient of Variation 13.4 % (11.5-14.5); RDW Standard Deviation 47.1 fL (36.4-46.3); White Blood Count 8.46 K/ul (4.8-10.8)
[2023-05-05 06:23] LABS: BUN Creatinine Ratio 18.9 (10-20); Calcium 8.5 mg/dl (8.6-10.3); Chol HDL Ratio 3.7 (0-5); Creatinine Clr Calc Pharmacy 140.6 ml/min; Est GFR (African American) 126.5 ml/min; Est GFR (Non-African American) 109.2 ml/min; Potassium 3.8 mmol/L (3.5-5.1)
[2023-05-05 06:28] LABS: Troponin I High Sensitivity 2.3 pg/ml (0-14)
[2023-05-05] MEDS ORDERED: LEVOTHYROXINE SODIUM 50 MCG TABLET PO SCH (06:30)
[2023-05-05 06:38] LABS: Thyroid Stimulating Hormone 3.82 uIu/ml (0.300-4.500)
--- NOTE | 2023-05-05 07:08 | Electrocardiogram Report ---
Test Reason : Blood Pressure : / mmHG Vent. Rate : 077 BPM Atrial Rate : 077 BPM P-R Int : 152 ms QRS Dur : 076 ms QT Int : 388 ms P-R-T Axes : 025 031 031 degrees QTc Int : 439 ms Normal sinus rhythm Normal ECG No previous ECGs available Confirmed by Karthik Davalos ([id number]) on 05/05/2023 7:08:28 AM Referred By: REFERRED SELF Confirmed By:Freddy Davalos
[2023-05-05 07:11] LABS: Estimated Average Glucose 114 mg/dl; Hemoglobin A1C 5.6 % (4.5-5.6)
--- NOTE | 2023-05-05 07:47 | XRay Report ---
XR chest 1V portable HISTORY: chest pain COMPARISON: None. FINDINGS: The lungs are clear. Cardiac silhouette is normal in size. No pleural effusions. No pneumot horax. There are low lung volumes. IMPRESSION: No acute process. ACT 112: Negative or not required by law. Electronically signed by: Messi Osborn M.D. 05/05/2023 7:46 AM
[2023-05-05] MEDS: METOPROLOL TARTRATE 25 MG TAB PO SCH (08:28)
[2023-05-05] MEDS ORDERED: lisinopril 10 MG TAB PO SCH (09:00)
[2023-05-05] MEDS ORDERED: THIAMINE HCL 50 MG TABLET PO SCH (09:00)
[2023-05-05] MEDS ORDERED: CEROVITE ADV FORMULA TAB PO SCH (09:00)
[2023-05-05] MEDS ORDERED: FOLIC ACID 1 MG TAB PO SCH (09:00)
[2023-05-05] MEDS ORDERED: ASPIRIN 81 MG ECTAB PO SCH (09:00)
[2023-05-05] MEDS ORDERED: GADOBUTROL 10ML VIAL IV ONE (10:49)
--- NOTE | 2023-05-05 11:12 | Magnetic Resonance Report ---
Brain MRI WITH AND WITHOUT CONTRAST HISTORY: Hypertension. Facial numbness. tia/cva? TECHNIQUE: Multiplanar multisequence MRI of the brain was performed both before and after the intrave nous administration of contrast. COMPARISON STUDY: Head CT 05/04/2023. FINDINGS: There are no areas of restricted diffusion to suggest acute infarction. The midline structu res are intact. The paranasal sinuses are clear. The mastoid air cells are clear. The ventricles and sulci are within normal limits for age. There is no mass, hematoma, midline shift. The major vascular flow-voids at the skull base are well maintained. Postcontrast sequences show no areas of abnormal e nhancement. IMPRESSION: No acute intracranial abnormality. ACT 112: Negative or not required by law. Electronically signed by: Messi Osborn M.D. 05/05/2023 11:11 AM
--- NOTE | 2023-05-05 12:09 | Cardiology Consultation ---
Date of Consultation May 05, 2023 Assessment & Plan (1) Hypertensive urgency: (2) Elevated transaminase measurement: (3) Chest pain: Plan -Workup for chest discomfort reassuring thus far with no significant repolarization changes on EKG x 2, no regional wall motion abnormalities on echocardiogram, and negative high-sensitivity troponin level x 3 measurements and a fourth was just obtained at 11:53 AM, the results of which are pending. -Blood pressure trending toward improvement, with most recent measurement down to 114/80. Agree with current treatment to include lisinopril 10 mg daily, and would continue her prior to hospital treatment with metoprolol tartrate. Patient does note 1 brief episode of palpitations within the last week that was nonsustained. Telemetry reveals sinus rhythm without arrhythmia. -Noted elevated AST level of 92 units/L, ALT level 110 units/L, possibly related to alcohol use or fatty liver infiltration. Total cholesterol 156, HDL 42, and LDL 97 mg/dL. Consider US of abdomen for evaluation as inpatient or outpatient. -Recommend low intensity exercise / Lexiscan stress test as an outpatient given risk factors of HTN, and family history of CAD. History of Present Illness Attending Physician: Magan Beauchamp MD History of Present Illness August is a 52 year old female seen in cardiology consultation per the request of Dr Armenta for the evaluation of hypertensive urgency and chest discomfort. 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 She notes a longstanding history of having been treated with metoprolol for both high blood pressure as well as palpitations initially diagnosed when she was found to have thyroid dysfunction. For 5 days leading up to her presentation to the emergency room yesterday the patient had been feeling unwell with intermittent headache symptoms. Ultimately her headache became worse and she also had intermittent facial numbness. A friend brought her to the emergency room and she had chest discomfort on the way to the emergency room that resolved after arrival. No additional chest discomfort overnight last night, and she was comfortable at the time of my assessment. She notes that a friend at work had taken her blood pressure midweek last week with a systolic reading in the 150s which is unusually high for her. She had been assessed by her primary care provider with plans to start lisinopril 10 mg but she had yet to start it before presenting to the emergency room yesterday for worsening symptoms with presenting blood pressure reading of 170/110. She received a dose of lisinopril 10 mg last evening at 20: 56 and another dose this morning at just after 8 AM.She has also received her prior to hospital treatment with metoprolol tartrate 25 mg twice daily. History is notable for obesity, BMI 42 kg/m. FAMILY HISTORY Mother at the age of 57 due to a myocardial infarction with history of what sounds like rheumatic heart disease 2 maternal uncles with history of ID Maternal aunt who is actually the twin sister of the patient's mother had a history of heart valve surgery The patient's father in his 60s, she is unaware of his history Siblings: No heart issues SOCIAL HISTORY Lives in [place] The patient is a non-smoker. 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 No recent alcohol use for the last week Allergies Allergy/AdvReac Type Severity Reaction Status Date / Time shellfish derived Allergy Intermediate Hives Unverified 05/04/23 18:55 sulfamethoxazole Allergy Verified 02/13/23 15:05 [From Bactrim] trimethoprim [From Bactrim] Allergy Verified 02/13/23 15:05 Home Medications Medication Instructions Recorded Confirmed Type metoprolol tartrate 25 mg PO BID 09/27/22 05/04/23 History alprazolam 0.5 mg tablet 0.5 mg PO DAILY PRN Anxiety 05/04/23 05/04/23 History levothyroxine 50 mcg tablet 50 mcg PO QAM 05/04/23 05/04/23 History lisinopril 0 mg PO DAILY 05/04/23 05/04/23 History Patient History Medical History Anxiety Hypothyroidism Hypertension Surgical History History of cholecystectomy Family History Mother Myocardial infarction Denies family history of Ovarian cancer Prostate cancer Breast cancer Colorectal cancer Social History Smoking Status: Never smoker Second Hand Exposure: No; Do You Dip or Chew Tobacco: No; Hx Alcohol Use: Yes Alcohol type: hard liquor Hx Substance Use: No Preferred Language: Belizean Communication Ability: Effective Ramp Lead Required: No Beliefs That Will Affect Care: None Current Living Situation: Spouse Current Living Situation Comment: lives with Other Information That Helps Us Care for You: No Feels Safe at Home: Yes Safety Concerns: Feels Safe At This Time Assistive Devices: Glasses Review of Systems Review of Systems: All systems reviewed & are unremarkable except as noted in HPI & below Physical Exam Constitutional: WD/WN, vitals as above Eyes: PERRL, conjunctivae normal, anicteric sclerae Respiratory: normal respiratory effort, lungs clear to auscultation Cardiovascular: RRR, no murmur, no edema Gastrointestinal (Abdomen): normal bowel sounds, soft, nontender, no hepatosplenomegaly Neurologic: PERRL, EOMI, accommodation nl, no face palsy, no dysarthria Results & Data Vital Signs (Past 12 Hours) Vital Signs Temp Pulse Pulse Resp BP Pulse Ox O2 Del Method 05/05/23 11:29 36.3 C L 66 19 114/80 94 Room Air 05/05/23 08:48 Room Air 05/05/23 07:32 36.9 C 64 19 141/80 H 97 Room Air 05/05/23 07:00 61 05/05/23 02:50 36.3 C L 74 16 104/68 95 Room Air 05/05/23 00:22 99/63 L Laboratory Results Cardiac Enzymes 05/04/23 05/04/23 05/05/23 Range/Units 17:20 20:28 05:14 AST 92 H (13-39) U/L Troponin I High Sens 3.7 4.1 2.3 (0-14) pg/ml Coagulation 05/04/23 Range/Units 17:20 PT 10.9 (9.0-12.0) Seconds APTT 28 (21-31) Seconds Lipids 05/05/23 Range/Units 05:14 Triglycerides 87 (0-150) mg/dl Cholesterol 156 (0-200) mg/dl HDL Cholesterol 42 mg/dl Cholesterol/HDL Ratio 3.7 (0-5) CBC 05/04/23 05/05/23 Range/Units 17:20 05:14 WBC 10.78 8.46 (4.8-10.8) K/ul RBC 4.80 4.00 L (4.20-5.40) M/uL Hgb 16.0 13.3 (12.0-16.0) g/dl Hct 45.3 38.0 (37.0-47.0) % Plt Count 310 273 (130-400) K/uL Neut # (Auto) 5.73 3.71 (1.40-6.50) K/uL Lymph # (Auto) 3.52 H 3.40 (1.20-3.40) K/uL [place] # (Auto) 0.99 H 0.80 H (0.11-0.59) K/uL Eos # (Auto) 0.37 0.44 (0.00-0.50) K/uL Baso # (Auto) 0.12 0.09 (0.00-0.20) K/uL Comprehensive Metabolic Panel 05/04/23 05/05/23 Range/Units 17:20 05:14 Sodium 139 139 (136-145) mmol/L Potassium 4.0 3.8 (3.5-5.1) mmol/L Chloride 102 109 H (98-107) mmol/L Carbon Dioxide 30 24 (21-32) mmol/L BUN 11 10 (6-23) mg/dl Creatinine 0.64 0.53 L (0.6-1.2) mg/dl Glucose 101 H 104 H (70-99(Fasting)) mg/dl Calcium 10.0 8.5 L (8.6-10.3) mg/dl AST 92 H (13-39) U/L ALT 110 H (7-52) U/L Alkaline Phosphatase 79 (34-104) U/L Total Protein 7.6 (6.0-8.3) gm/dl Albumin 4.6 (3.4-5.0) gm/dl Intake and Output 05/04/23 05/05/23 05/05/23 22:59 06:59 14:59 Intake Total 600 / 800 200 / 800 1000 / 1000 Balance 600 / 800 200 / 800 1000 / 1000 Intake: IV 600 / 600 1000 / 1000 Acetaminophen 1,000 mg In 100 100 / 100 ml @ 400 mls/hr IV NOW STA Rx#: [id number] Sodium Chloride 0.9% 1,000 ml @ 1000 / 1000 80 mls/hr IV .[id number] [facility] Rx#: [id number] Sodium Chloride 0.9% 500 ml @ 500 / 500 999 mls/hr IV .[id number] ONE Rx#: [id number] Oral 200 / 200 Other: # Unmeasured Voids 1 Weight 102.4 kg 104.2 kg Weight Measurement Method Built in [facility] Diagnostic Findings EKG performed at 05/04/2023 at 1725: Sinus rhythm at 77 bpm, normal EKG Repeat tracing performed this morning at 05/05/2023: Sinus rhythm at 63 bpm, baseline artifact, no significant repolarization abnormalities with noted nonspecific diffuse T wave flattening. Echocardiogram performed today and interpreted independently: Borderline concentric left ventricular hypertrophy, no left ventricular regional wall motion abnormalities, LVEF in the range of 55 to 60%, the left ventricular diastolic function is normal, there is no significant valvular disease. CT brain, CT angiogram of the head and neck vessels, within normal limits MRI of the brain revealed no acute intracranial pathology (3) Chest pain Chest pain type: unspecified Qualified Code(s): R07.9 - Chest pain, unspecified
--- NOTE | 2023-05-05 12:10 | Electrocardiogram Report ---
Test Reason : Blood Pressure : / mmHG Vent. Rate : 063 BPM Atrial Rate : 063 BPM P-R Int : 158 ms QRS Dur : 078 ms QT Int : 452 ms P-R-T Axes : 022 029 012 degrees QTc Int : 462 ms Poor data quality, interpretation may be adversely affected Normal sinus rhythm Normal ECG When compared with ECG of 04-MAY-2023 17:25, No significant change was found Confirmed by Karthik Davalos ([id number]) on 05/05/2023 12:10:08 PM Referred By: REFERRED SELF Confirmed By:Freddy Davalos
[2023-05-05] MEDS ORDERED: STROKE PATIENT DISCHARGE STA (13:37)
--- NOTE | 2023-05-05 14:48 | Discharge Summary ---
Date of Service May 05, 2023 Admission HPI Per Admitting Provider 52-year-old female with past med history significant for hypertension, borderline diabetes, borderline hyperlipidemia, obesity comes because of elevated blood pressure and numbness in the face and tingliness in extremities. Patient states lately she is having headaches. Since Sunday she is having dizziness. Today went to PCP and was started on lisinopril but she did not took it. But she developed some numbness in the face and tingling in the extremities which prompted her to come to the ER. Stroke workup was done with CT head and CTA head and neck which are unremarkable. After Tylenol her headache improved and blood pressures seem to improved and her symptoms resolved. Her blood pressure has been climbing up again and she states the numbness is coming back on the face. Alert and oriented. Speech is clear. Denies any blurred visions or double visions. No earache. No runny nose. No sore throat. No cough. She was also having some chest pain earlier that resolved now. Denies any shortness of breath. No nausea. No abdominal pain. Normal bowel and bladder movements. Past medical history. As mentioned above Past surgical history. Cholecystectomy Family history. Mother side had heart disease. Social history. No smoking. Drinks 2-3 shots of vodka every weekend and sometimes on the weekdays. But states that she did not drink for last 1 week because of headaches. Denies any drug use. Admission Exam Per Admitting Provider General- Not in distress Head- atraumatic Eyes- PERRL. ENT- oropharynx clear Neck- supple, no JVD. Lungs- clear to auscultation , no wheezing or crackles Heart- regular rhythm; no murmur, no gallop. Abdomen- normal bowel sounds, soft, nontender, no distension. Extremities- no pretibial edema, no erythema seen. Neuro- alert, oriented x 3; PERRL no facial palsy; no dysarthria; motor 5/5 bilaterally; normal coordination of movements. No pronator drift. sensations intact. Skin- warm & dry Principal Diagnosis Strokelike symptoms Atypical chest pain Discharge Exam Constitutional: WD/WN, vitals as above, NAD, sitting up in bed, pleasant, conversing easily Respiratory: normal respiratory effort, lungs clear to auscultation, no wheeze, rales, rhonchi. Normal insp/exp effort, no accessory muscle use Cardiovascular: RRR, no murmur, no edema Vessels: no JVD or carotid bruit Chest: normal inspection of chest Abdomen: normal bowel sounds, soft, nontender, no hepatosplenomegaly Musculoskeletal: no cyanosis or clubbing, extremities motor strength 5/5 Skin: no rashes, warm and dry normal turgor Neurologic: PERRL, EOMI, accommodation nl, no face palsy, no dysarthria CN's II- XI intact bilaterally and moves all extremities Psychiatric: A+Ox3, euthymic affect Discharge Data Allergies Allergy/AdvReac Type Severity Reaction Status Date / Time shellfish derived Allergy Intermediate Hives Unverified 05/04/23 18:55 sulfamethoxazole Allergy Verified 02/13/23 15:05 [From Bactrim] trimethoprim [From Bactrim] Allergy Verified 02/13/23 15:05 Consultations 05/04/23 19:56 ED Decision to Admit Stat 05/05/23 08:00 Consult Cardiology Routine Ordered Studies 05/04/23 17:17 CT angio head w con Stat CT angio neck with con Stat CT head/brain wo con Stat 05/05/23 07:15 MR brain wo/w con Urgent 05/05/23 10:45 US liver Routine Hospital Course (1) Hypertensive urgency: 52-year-old female with past med history significant for hypertension, borderline diabetes, borderline hyperlipidemia, obesity comes because of elevated blood pressure and numbness in the face and tingliness in extremities. Patient states lately she is having headaches. Since Sunday she is having dizziness. Today went to PCP and was started on lisinopril but she did not took it. But she developed some numbness in the face and tingling in the extremities which prompted her to come to the ER. Patient underwent stroke workup including CT head, CTA head and neck and brain MRI which did not show any acute abnormality. Cardiology was consulted for evaluation of patient's chest heaviness. EKG and troponin were negative. Recommended stress test as outpatient. Patient was found to have mild elevation in the AST/ALT. Discussed with the patient about the finding. Patient wanted to follow-up with her primary care doctor for workup. Outpatient abdominal ultrasound/hepatitis panel. Please note the above document was generated using voice recognition software. It may contain grammatical, syntax or spelling errors. Any formal questions or concerns about the content, text or information contained within the body of this dictation should be directly addressed to the provider for clarification Total Time Total Time Spent Total Time Spent (In Minutes): 35 Total Time Includes: Examination of the Patient, Discharge Planning, Medication Reconciliation, Communication With Other Providers and Other Discharge Plan Discharge Items Patient Disposition: Home - Self-Care Reason For Visit: HTN URGENCY. TIA? Discharge Diagnosis: Strokelike symptoms Chest pain Activity: Resume your previous activity Non-emergency contact: Primary Care Provider Call non-emergency contact if: you have any medication questions and your symptoms worsen Follow-up/Referrals: Earnest Samayoa [Primary Care Provider] - Diet: Regular Addtl Attending Provider Instructions: You were admitted to the hospital due to strokelike symptoms. MRI of the brain ruled out any stroke. You are also evaluated by cardiology during the hospitalization. Echocardiogram was done which did not show any abnormal findings. Please continue to take the blood pressure medication prescribed to you. Please measure blood pressure daily at home. Please be at a seated position with both feet on the ground and your arm rested while taking your blood pressure. Rest 5 minutes prior to measuring her blood pressure. Please follow heart healthy diet. An appointment will be set up with your primary care doctor for sometime next week. Pending Studies at Discharge: No Stand-Alone Forms: My [employer], Smoking Cessation Medications and DC Order Prescriptions: Continued metoprolol tartrate 25 mg PO BID alprazolam 0.5 mg tablet 0.5 mg PO DAILY PRN (Reason: Anxiety) levothyroxine 50 mcg tablet 50 mcg PO QAM lisinopril 0 mg PO DAILY Patient Comments: Was supposed to start today but hasn't picked up Rx Instructions: Per pt it is 10 mg (half tab of 20mg) for 3 days then 20 mg after the three days. Hasn't picked up medication yet. Discharge Orders: Discharge Order (Routine); Ordered 05/05/23 Ordered By: Magan Beauchamp Admission Data Admit Date/Time: 05/04/23 20:44 Attending Provider: Magan Beauchamp Admit Provider: Fermin Armenta Primary Care Provider: Earnest Samayoa Other Providers: Fermin Armenta; Kate Masterson; Earnest Yuan; Alexey Lisa; Ivan Carter; Jeffrey Keys; Landen Soto; Dalila Agarwal; Clementien Mata; Kate Andrade; Juan Luis Pyle; Lance Osborn; Amy Rodriguez; Amita Gomez; Orlando Méndez; Haresh Resendez Other Interventions: Discharge Summary Assessment (RN) Last Done: 05/05/23 13:49
== END 2023-05-05 14:00 | disposition home or self-care (01) | DRG 305 ==
LOC: ED 17:04 → 4W 20:44 → INTOOBSV 20:44 → 4W 22:18